=== PATIENT | female | born 1955 | race African-American/Black ===

== ENCOUNTER 2018-07-30 20:59 | Emergency (ER) | payer SELFPAY ==
--- NOTE | 2018-07-30 21:03 | PDOC ---
History of Present Illness - History of Present Illness Initial Comments: This is a 63 year old female, with a significant past medical history of peripheral artery disease, who presents to the emergency department today complaining of a runny nose, congestion, and productive cough for 6 days. Patient notes her cough is productive of dark-brown sputum. Patient reports associated chills, chest tightness, and shortness of breath exacerbated with coughing. Patient also notes 1 episode of posttussive vomiting. Patient denies sick contact and recent travel. Patient denies having flu shot this year. The patient denies headache and dizziness. Denies fever, diarrhea and constipation. Denies dysuria, frequency, urgency and hematuria. PAST MEDICAL HISTORY: no significant history PAST SURGICAL HISTORY: no significant history FAMILY HISTORY: no pertinent history SOCIAL HISTORY: Pt lives with family and is employed. Previous smoker (quit 5 years ago) MEDICATIONS: reviewed ALLERGIES: As per nursing notes ROS General: +Chills No fevers, no weakness, no weight loss HEENT: +Runny nose. +Congestion. No change in vision. No sore throat. No ear pain CardioVascular: +Chest tightness. + Shortness of breath. Respiratory: +Productive cough of dark-brown sputum. No wheezing. Gastrointestinal: +1 episode posttussive vomit. no diarrhea or constipation, No rectal bleeding Genitourinary: No dysuria, hematuria, or frequency Musculoskeletal: No joint or muscle pain or swelling Neurologic: No headache, vertigo, dizziness or loss of consciousness Psychiatric: nor depression Skin: No rashes or easy bruising Endocrine: no increased thirst or abnormal weight change Allergic: no skin or latex allergy All other systems reviewed and normal Exam: General: Well-nourished well-developed individual, no acute distress HEENT: Throat: Normal, tonsils normal, no erythema or exudate Neck: Supple, no meningeal signs, no lymphadenopathy Eyes::Pupils equal reactive and round, extraocular motion intact Chest: Nontender to palpation Cardiac: S1-S2 normal, regular rate and rhythm, no murmurs rubs or gallops Respiratory: +Mild decreased breath sounds bilaterally. +Moist cough noted during exam. No rhonchi, rales, or wheezing. Extremities: Warm, dry, no cyanosis, clubbing, or edema Skin: No rashes Neuro: Alert and oriented x3, nonfocal exam, grossly intact, normal gait Psych: Normal mood and affect 07/30/18 21:40 <Vida Puente - Last Filed: 07/30/18 21:42> - General History Source: Patient Exam Limitations: No Limitations - History of Present Illness Initial Comments: A portion of this note was documented by scribe services under my direction. I have reviewed the details of the note, within reason, and agree with the documentation with the following case summary and management plan written by me. Patient treated in the ED. Nursing notes are reviewed and incorporated into the medical decision-making. Vital signs reviewedAssessment and plan: This is a 63-year-old female comes in complaining of productive cough of greenish brown phlegm. Patient denies any fevers but is complaining of some chills however she has been complaining of some shortness of breath associated with the cough. Chest x-ray showed cardiomegaly otherwise no acute disease however given her history I meant to start her on a Z-Matti for probable bronchitis or early pneumonia that isn't showing up on the chest x-ray yet 07/30/18 21:55 <Baldo Burgess I - Last Filed: 07/30/18 21:59> - General Chief Complaint: Respiratory Stated Complaint: PRODUCTIVE COUGH/PAIN Time Seen by Provider: 07/30/18 21:03 Past History <Vida Puente - Last Filed: 07/30/18 21:42> <Baldo Burgess I - Last Filed: 07/30/18 21:59> - Past Medical History Allergies/Adverse Reactions: Allergies Allergy/AdvReac Type Severity Reaction Status Date / Time No Known Allergies Allergy Verified 07/30/18 21:01 Home Medications: Ambulatory Orders Aspirin 81 mg PO DAILY 07/30/18 Azithromycin 250 mg PO DAILY #4 tablet 07/30/18 *Physical Exam - Vital Signs Last Vital Signs Temp Pulse Resp BP Pulse Ox 98.2 F 89 20 185/106 H 99 07/30/18 21:04 07/30/18 21:04 07/30/18 21:04 07/30/18 21:04 07/30/18 21:04 <Vida Puente - Last Filed: 07/30/18 21:42> Moderate Sedation - Procedure Monitoring Vital Signs: Procedure Monitoring Vital Signs Temperature 98.2 F 07/30/18 21:04 Pulse Rate 89 07/30/18 21:04 Respiratory Rate 20 07/30/18 21:04 Blood Pressure 185/106 H 07/30/18 21:04 O2 Sat by Pulse Oximetry (%) 99 07/30/18 21:04 <Vida Puente - Last Filed: 07/30/18 21:42> ED Treatment Course - RADIOLOGY Radiograph Interpretation: Chest X-Ray IMPRESSION: Cardiomegally, no acute disease. Reported By: Paul Arciniega MD 07/30/18 21:40. 07/30/18 21:43 - Medications Given in the ED: ED Medications Discontinued Medications Generic Name Dose Route Start Last Admin Trade Name Freq PRN Reason Stop Dose Admin Acetaminophen 1,000 mg 07/30/18 21:25 07/30/18 21:28 Tylenol - PO 07/30/18 21:26 1,000 mg ONCE ONE Administration <Vida Puente - Last Filed: 07/30/18 21:42> *DC/Admit/Observation/Transfer - Attestations Scribe Attestion: Documentation prepared by DEBBIE Bailey, acting as medical physics teacher for Baldo Burgess MD. 07/30/18 21:41 <Vida Puente - Last Filed: 07/30/18 21:42> - Discharge Dispostion Decision to Admit order: No <Baldo Burgess I - Last Filed: 07/30/18 21:59> Diagnosis at time of Disposition: Bronchitis - Discharge Dispostion Disposition: HOME Condition at time of disposition: Stable - Patient Instructions Additional Instructions: Take azithromycin 1 tablet a day for the next 4 days. Your giving her first dose here see her next dose is due tomorrow evening.. Tylenol or Motrin as needed for pain or fevers. Her chest x-ray shows a somewhat enlarged heart so it is important to follow up with your primary care doctor for further evaluation and a checkup Return to the emergency department immediately with ANY new, persistent or worsening symptoms. Continue any medications as previously prescribed by your physician. You should follow up with your primary doctor as soon as possible regarding today's emergency department visit. . Please make sure your doctor reviews the results of your emergency evaluation. Thank you for coming to the Emergency Department today for your care. It was a pleasure to see you today. Please note that your evaluation is INCOMPLETE until you follow-up with your doctor.
[2018-07-30 21:07] VITALS: PULSE 89; TEMP 98.2; BMI 35.5
[2018-07-30] MEDS ORDERED: ACETAMINOPHEN 500 MG TABLET (FP) PO ONE (21:25)
[2018-07-30] MEDS ORDERED: ACETAMINOPHEN 500 MG TABLET (FP) ONE (21:25)
[2018-07-30] MEDS ORDERED: AZITHROMYCIN 500 MG TABLET PO ONE (21:42)
[2018-07-30] MEDS ORDERED: AZITHROMYCIN 250 MG TABLET ONE (21:47)
[2018-07-30 22:04] VITALS: BP 180/98
== END 2018-07-30 22:03 | disposition home or self-care (01) ==
LOC: FER 20:59
DX: R05 Cough (principal); J40 Bronchitis, not specified as acute or chronic; I73.9 Peripheral vascular disease, unspecified
CPT/HCPCS: 71046-TC-FY; 99281-25